=== PATIENT | female | born 1990 | race Caucasian/White ===

== ENCOUNTER 2019-05-01 11:01 | Emergency (ER) | payer OTHER, SELFPAY ==
[2019-05-01 11:10] VITALS: BP 128/68; PULSE 98; RESP 18; TEMP 36.9; O2SAT 100
--- NOTE | 2019-05-01 11:18 | ED.GENADULT ---
HPI - General Adult General Chief complaint: Urogenital-Female Stated complaint: Poss UTI Time Seen by Provider: 05/01/19 11:35 Source: patient and RN notes reviewed Mode of arrival: ambulatory Limitations: no limitations History of Present Illness HPI narrative: This is a 28 years old female presents to the office for an evaluation of possible UTI. Symptom began 4 days ago with urinary urgency, frequency, and suprapubic pain. Symptom has improved with Azo and worse again yesterday.She did not take any Azo today.Admits to history of recurrent UTI And symptoms reminiscent her previous UTI. Related Data Home Medications Medication Instructions Recorded Confirmed cariprazine [Vraylar] 3 mg PO DAILY 05/01/19 05/01/19 estradiol 1 patch TRANSDERMAL WEEKLY 05/01/19 05/01/19 fenofibrate 54 mg PO DAILY 05/01/19 05/01/19 levetiracetam [Keppra] 1,000 mg PO BID 05/01/19 05/01/19 meloxicam 15 mg PO DAILY 05/01/19 05/01/19 mirtazapine [Remeron] 15 mg PO DAILY 05/01/19 05/01/19 omeprazole 40 mg PO DAILY 05/01/19 05/01/19 ropinirole 0.25 mg PO DAILY 05/01/19 05/01/19 topiramate 100 mg PO BID 05/01/19 05/01/19 trazodone 150 mg PO HS 05/01/19 05/01/19 Allergies Allergy/AdvReac Type Severity Reaction Status Date / Time carbamazepine [From Tegretol] Allergy Hives Verified 05/01/19 11:18 latex Allergy Anaphylaxis Verified 05/01/19 11:18 morphine Allergy Dyspnea / Verified 05/01/19 11:18 SOB Review of Systems Review of Systems: Narrative: CONSTITUTIONAL: Denies fever or feeling ill ENT: Denies congestion CARDIOVASCULAR: Denies chest pain RESPIRATORY: Denies cough GASTROINTESTINAL: Denies abdominal pain, nausea, vomiting, diarrhea. GENITOURINARY: Denies abnormal discharge SKIN: Denies rash MUSCULOSKELETAL:Reports lower back pain NEUROLOGIC: Denies lightheaded PMFSH Past Medical History Medical History (Updated 05/01/19 @ 11:50 by ISABEL Edmondson) Anxiety and depression Bipolar affect, depressed History of alcohol abuse Hx of drug abuse Seizure TBI SVT (supraventricular tachycardia) Surgical History Surgical History (Updated 05/01/19 @ 11:48 by ISABEL Edmondson) Hx of hysterectomy secondary to endometriosis Hx of tonsillectomy Social History Social History (Updated 05/01/19 @ 11:50 by ISABEL Edmondson) Smoking status: Former smoker Tobacco type: e-cigarettes Comments At time of signature, I agree with nursing past medical, surgical, social and family history. There is no relevant family history pertinent to the presenting complaint. Exam Narrative: Exam Narrative: GENERAL: This is a well-nourished, well-developed patient, in no apparent distress. CARDIOVASCULAR: Regular rate and rhythm without murmurs, gallops, or rubs. RESPIRATORY: Clear to auscultation. Breath sounds equal bilaterally. No wheezes, rales, or rhonchi. GASTROINTESTINAL: Abdomen soft, non-tender, nondistended. Bowel sounds are active. No hepato-splenomegaly, or palpable masses. No guarding. left CVA tenderness. SKIN: warm, intact with no suspicious lesions or rash, good texture and turgor. NEURO: awake, alert, and oriented to person, place and time. There were no obvious focal neurologic abnormalities. Steady gait Reymundo Coma Scale Eye Opening: Spontaneous 4 Reymundo Coma Scale Motor: Obeys Commands 6 Reymundo Coma Scale Verbal: Oriented 5 Course Vital Signs Vital signs: Vital Signs Temperature 98.4 F 05/01/19 11:10 Pulse Rate 98 05/01/19 11:10 Respiratory Rate 18 05/01/19 11:10 Blood Pressure 128/68 05/01/19 11:10 Pulse Oximetry 100 05/01/19 11:10 Temperature 98.4 F 05/01/19 11:10 Pulse Rate 98 05/01/19 11:10 Respiratory Rate 18 05/01/19 11:10 Blood Pressure 128/68 05/01/19 11:10 Pulse Oximetry 100 05/01/19 11:10 Medical Decision Making MDM Narrative Medical decision making narrative: Discharge instructions reviewed with patient, as well as provided in writing pe
== END 2019-05-01 11:46 | disposition home or self-care (01) ==
PROVIDERS: Emergency Provider Nurse Practitioner; PCP Physician Assistant
DX: N30.01 Acute cystitis with hematuria (principal); Z87.891 Personal history of nicotine dependence; F41.9 Anxiety disorder, unspecified; F32.9 Major depressive disorder, single episode, unspecified; G40.909 Epilepsy, unspecified, not intractable, without status epilepticus
CPT/HCPCS: 81003; 87077; 87086; 87088; 99213; G0463

== ENCOUNTER 2019-11-23 11:06 | Outpatient (CLI) | payer OTHER, SELFPAY ==
[2019-11-23 11:26] LABS: Basophils Absolute Auto 0.1 K/mm3 (0.0-0.1); Basophils Percent Auto 0.7 % (0.2-1.2); Eosinophils Absolute Auto 0.1 K/mm3 (0-0.3); Eosinophils Percent Auto 1.6 % (0-4.4); Hematocrit 34.7 % (37.0-47.0); Hemoglobin 11.5 g/dL (12.0-15.0); Immature Granulocyte Absolute 0.01 K/mm3 (0.00-0.031); Immature Granulocyte Percent A 0.1 % (0-0.5); Lymphocytes Absolute Auto 2.82 K/mm3 (0.9-3.2); Mean Corpuscular HGB Conc 33.1 g/dl (32-36); Mean Corpuscular Hemoglobin 29.7 pg (26-34); Mean Corpuscular Volume 89.7 fl (80-100); Mean Platelet Volume 9.3 fl (7.4-10.4); Monocytes Absolute Auto 0.5 K/mm3 (0.1-0.6); Monocytes Percent Auto 6.9 % (2.6-8.5); Neutrophils Absolute Auto 3.3 K/mm3 (1.3-6.7); Neutrophils Percent Auto 48.7 % (45.5-73.1); Platelet Count Result 371 k/mm3 (150-375); Red Blood Count 3.87 M/mm3 (4.2-5.4); Red Cell Distribution Width 13.5 % (11.5-14.5); White Blood Count 6.7 K/mm3 (4.5-10.0)
[2019-11-23 12:10] LABS: Alanine Aminotransferase 18 U/L (4-35); Albumin Level 4.3 g/dL (3.5-5.1); Alkaline Phosphatase 70 U/L (38-126); Anion Gap 12 mmol/L (8-16); Aspartate Amino Transferase 20 U/L (14-36); Bilirubin,Total 0.1 mg/dL (0.2-1.3); Blood Urea Nitrogen 14 mg/dL (7-17); Calcium 9.4 mg/dL (8.4-10.2); Carbon Dioxide 21 mmol/L (22-30); Chloride 108 mmol/L (98-107); Estimated Glomerular Filt Rate > 60; Glucose 104 mg/dL (65-105); Lactate Dehydrogenase 363 U/L (313-618); Potassium 4.3 mmol/L (3.4-5.0); Sodium 141 mmol/L (137-145)
[2019-11-23 12:17] LABS: Iron 40 ug/dL (37-170)
[2019-11-23 12:26] LABS: Percent Iron Saturation 10 % (20-50)
[2019-11-23 13:16] LABS: Folic Acid 10.7 ng/mL (2.76->20)
[2019-11-28 15:58] LABS: Soluble Transferrin Receptor 1.45 mg/L (0.76-1.76)
== END 2019-11-23 11:07 | disposition home or self-care (01) ==
LOC: ANHLAB 11:10
PROVIDERS: PCP Physician Assistant; Visit Provider Internal Medicine Hematology & Oncology
DX: D64.9 Anemia, unspecified (principal)
CPT/HCPCS: 36415; 80053; 82607; 82728; 82746; 83540; 83550; 83615; 84238; 84443; 85025

== ENCOUNTER 2020-01-17 12:49 | Inpatient (IN) | payer OTHER, SELFPAY ==
--- NOTE | ~2020-01-17 | CT_ITS ---
EXAMINATION: CT brain wo con DATE: 01/17/2020 13:24 INDICATION: Altered mental status. Traumatic brain injury. TECHNIQUE: Computed tomography (CT) of the head was performed without intravenous contrast. The mA wa s adjusted according to patient size. Iterative reconstruction technique was employed. The dose-lengt h product was 605.33 mGy-cm. COMPARISON: None FINDINGS: There is no intracranial hemorrhage, acute infarction, or abnormal intracranial mass lesion . The ventricles are normal in size. The orbits are normal. There is mild mucosal thickening in sphen oid sinus. The mastoid air cells are normal. IMPRESSION: 1. Normal brain. Reviewed, dictated and finalized at location [facility] IMPRESSION: 1. Normal brain.
--- NOTE | 2020-01-17 12:52 | ECG_ITS ---
Measurements Intervals [place] Rate: 71 P: -3 MD: 163 QRS: 42 QRSD: 101 T: 9 QT: 399 QTc: 434 Interpretive Statements SINUS RHYTHM BORDERLINE T WAVE ABNORMALITY- INFERIOR LEADS BASELINE ARTIFACT- I, II, AVR, AVL, AVF, V3-V6 BORDERLINE ECG Electronically Signed On 01-17-2020 13:29:54 DEDICATED DRIVER by Robert Pérez D.O.
[2020-01-17 13:00] VITALS: BP 147/80; PULSE 80; RESP 22; TEMP 36.7; O2SAT 99
--- NOTE | 2020-01-17 13:05 | ED.GENADULT ---
HPI - General Adult General Chief complaint: Altered Mental Status Stated complaint: I THINK SHE WILL DO THAT FALL AND SHAKE THING Time Seen by Provider: 01/17/20 12:54 Source: patient and family History of Present Illness HPI narrative: Patient is a 29 y/o female complaining of diffuse headache since yesterday. She states that her headache is bilateral frontal. She describes her headache as a pressure and rates it as 8/10. There is no alleviating or exacerbating factor. She also has nausea, vomiting and neck pain and stiffness. starts that she was not acting right around 10:00 AM. She has history of seizure. She also states that she has history possible intracranial hypertension. Related Data Home Medications Medication Instructions Recorded Confirmed cariprazine [Vraylar] 3 mg PO DAILY 05/01/19 05/01/19 estradiol 1 patch TRANSDERMAL WEEKLY 05/01/19 05/01/19 fenofibrate 54 mg PO DAILY 05/01/19 05/01/19 meloxicam 15 mg PO DAILY 05/01/19 05/01/19 ropinirole 0.25 mg PO DAILY 05/01/19 05/01/19 topiramate 100 mg PO BID 05/01/19 05/01/19 trazodone 150 mg PO HS 05/01/19 05/01/19 duloxetine [Cymbalta] 60 mg PO DAILY 01/17/20 ropinirole [Requip] 1 mg PO BID 01/17/20 Allergies Allergy/AdvReac Type Severity Reaction Status Date / Time carbamazepine [From Tegretol] Allergy Hives Verified 01/17/20 13:00 latex Allergy Anaphylaxis Verified 01/17/20 13:00 morphine Allergy Dyspnea / Verified 01/17/20 13:00 SOB Review of Systems Constitutional: Constitutional: Denies chills, Denies fever(s), Reports headache(s) and Denies weakness Eyes: Eyes: Denies blurry vision ENT: Reports headache(s) and Reports neck pain Cardiovascular: Cardiovascular: Denies chest pain and Denies dyspnea Respiratory: Respiratory: Denies cough and Denies dyspnea Gastrointestinal: Gastrointestinal: Denies abdominal pain, Denies diarrhea, Reports nausea and Reports vomiting Genitourinary: Genitourinary: Denies hematuria and Denies dysuria Musculoskeletal: Musculoskeletal: Denies back pain and Denies neck pain Neurologic: Reports headache(s) and Denies weakness [facility] Past Medical History Medical History Anxiety and depression Bipolar affect, depressed History of alcohol abuse Hx of drug abuse Seizure TBI SVT (supraventricular tachycardia) Surgical History Surgical History Hx of hysterectomy secondary to endometriosis Hx of tonsillectomy Social History Social History Smoking status: Current every day smoker Tobacco type: e-cigarettes/vaping Alcohol intake: former Substance use: former Gender identity (if verbalized by the patient): Female Sexual Orientation (if Verbalized by the Patient): Straight or Heterosexual Spiritual care concerns: No Exam Const: General: no acute distress and well developed Orientation/consciousness: oriented to person, oriented to place and confusion HENMT: Head: normocephalic Ears: external ears normal General nose exam: Normal external nose present Eyes: General: appearance normal, both eyes and all related structures Conjunctivae: conjunctivae normal Neck: Neck: normal visual inspection and full ROM Chest: Chest palpation & inspection: normal inspection of the chest and no tenderness Resp: Effort & Inspection: normal respiratory effort Auscultation: clear to auscultation bilaterally Cardio: Rate: regular rate Rhythm: regular rhythm GI: GI Palp: No abdominal tenderness and Yes Soft to palpation Skin: General skin exam: normal color and turgor normal Neuro: General: oriented to person, oriented to place, oriented to time and patient oriented x3 Cranial nerves: Yes CN's II-XII intact bilaterally Cognition (Neuro): normal cognition Speech: normal speech Motor exam (neuro): 5/5 motor strength present throughout Sen
[2020-01-17 13:21] LABS: Basophils Percent Auto 0.5 % (0.2-1.2); Eosinophils Absolute Auto 0.1 K/mm3 (0-0.3); Eosinophils Percent Auto 0.8 % (0-4.4); Hematocrit 36.9 % (37.0-47.0); Hemoglobin 12.3 g/dL (12.0-15.0); Immature Granulocyte Absolute 0.02 K/mm3 (0.00-0.031); Immature Granulocyte Percent A 0.3 % (0-0.5); Lymphocytes Absolute Auto 3.14 K/mm3 (0.9-3.2); Lymphocytes Percent Auto 39.9 % (18.3-44.2); Mean Corpuscular HGB Conc 33.3 g/dl (32-36); Mean Corpuscular Hemoglobin 29.9 pg (26-34); Mean Corpuscular Volume 89.6 fl (80-100); Mean Platelet Volume 9.2 fl (7.4-10.4); Monocytes Absolute Auto 0.5 K/mm3 (0.1-0.6); Monocytes Percent Auto 5.7 % (2.6-8.5); Neutrophils Absolute Auto 4.2 K/mm3 (1.3-6.7); Neutrophils Percent Auto 52.8 % (45.5-73.1); Platelet Count Result 361 k/mm3 (150-375); Red Blood Count 4.12 M/mm3 (4.2-5.4); Red Cell Distribution Width 13.3 % (11.5-14.5); White Blood Count 7.9 K/mm3 (4.5-10.0)
[2020-01-17 13:33] LABS: Alanine Aminotransferase 22 U/L (4-35); Albumin Level 4.6 g/dL (3.5-5.1); Alkaline Phosphatase 75 U/L (38-126); Anion Gap 13 mmol/L (8-16); Aspartate Amino Transferase 24 U/L (14-36); Bilirubin,Total 0.2 mg/dL (0.2-1.3); Blood Urea Nitrogen 14 mg/dL (7-17); Calcium 9.2 mg/dL (8.4-10.2); Carbon Dioxide 18 mmol/L (22-30); Chloride 110 mmol/L (98-107); Estimated CRCL calculation 98 ml/min; Estimated Glomerular Filt Rate > 60; Glucose 103 mg/dL (65-105); Potassium 3.8 mmol/L (3.4-5.0); Sodium 141 mmol/L (137-145)
[2020-01-17 14:29] LABS: Add Urine Microscopic? YES; Amorphous Sediment Urine Moderate; Appearance Urine Cloudy (Clear); Bacteria Urine Trace /hpf; Bilirubin Urine Negative (Negative); Blood Urine Negative (Negative); Color Urine Yellow (Yellow); Glucose Urine UA Negative (Negative); Ketones Urine Negative (Negative); Leukocyte Esterase Ur Negative LEU/UL (Negative); Mucus Urine Few /lpf; Nitrate Urine Negative (Negative); Protein Urine Negative (Negative); Squamous Epithelial Cell Urine Many /hpf (Few); Urobilinogen Urine Negative mg/dL (<2.0)
[2020-01-17] MEDS: SODIUM CHLORIDE 0.9% IV 1,000 ML 999 ML IV CONT (14:29)
[2020-01-17 14:35] LABS: Barbiturate Screen Urine Negative (Negative); Benzodiazepines Screen Urine Negative (Negative)
[2020-01-17] MEDS: ONDANSETRON INJ 4 MG/2 ML VIAL IV PUSH ×2 (14:39→21:23)
[2020-01-17 14:40] LABS: Amphetamine Screen Urine Negative (Negative); Cannabinoid Screen Urine Negative (Negative); Cocaine Screen Urine Negative (Negative); Methadone Screen Urine Negative (Negative)
[2020-01-17] MEDS: diphenhydrAMINE HCl INJ 50 MG/ML VIAL 25 MG IV PUSH (14:56)
[2020-01-17] MEDS: KETOROLAC 30 MG/ML VIAL (*BKC) IV PUSH (14:56)
[2020-01-17 14:57] LABS: Opiate Screen Urine Negative (Negative); Phencyclidine Screen Urine Negative (Negative)
[2020-01-17 16:36] LABS: Glucose CSF 56 mg/dL (40-70); Total Protein CSF 61 mg/dL (12-60)
[2020-01-17 16:46] LABS: Appearance CSF Clear (Clear); CSF source CSF; Color CSF Colorless (Colorless)
[2020-01-17 16:47] LABS: Lymphocytes CSF 90 % (40-80); Monocytes CSF 10 % (15-45); Neutrophils CSF 0 % (0-6); Nucleated Cell CSF 11 /uL (0-5); Red Blood Cell CSF 8 (0-2)
[2020-01-17] MEDS: ACYCLOVIR SODIUM IVPB 1,000 MG in DEXTROSE 5% IN WATER 250 ML 266 MG IVPB (17:56)
--- NOTE | 2020-01-17 18:00 | PM.IMHP ---
H&P: HPI History of Present Illness Date/Time: 01/17/20 18:00 Chief complaint: Headache, confusion. Narrative: Sarah Menon is a 29-year-old female with history of traumatic brain injury and subsequent seizures and underlying psychiatric illnesses who presented to the emergency department earlier today via private vehicle with complaints of headache and confusion. She has a history of alcohol and prescription drug abuse and has been clean since February 2018. In fact she has been living at a sober house since 2018 however she was kicked out of that home on Friday night after she missed curfew. She has been staying with friends and last night she stated a local motel and was there were she started to become confused and she apparently called a friend who was concerned about her. That friend came to visit her today and she seemed to be doing better however while they were out shopping she apparently once again became confused, got of the car, and was wandering around. On arrival to the emergency department she reported a bifrontal headache that has been present for almost 1 week in addition to nausea and vomiting for which she has been taking Compazine and ibuprofen. She also mentions significant fatigue, sleeping about 8 hours a day and napping 2 to 3 hours a day. She does not believe she had a seizure within the last 24 hours but notes increasing numbers of seizures over the last month despite being compliant with her home medication. Lumbar puncture was performed in the emergency department with findings of possible aseptic meningitis and she is being admitted in this setting. The biggest complaint she has at this time is of pain at the side of her lumbar puncture. She has had exposure to COVID-19 but has tested negative x2 over the last couple of weeks. She denies fever, chills, and sweats. No sinus congestion, rhinorrhea, otalgia, or odynophagia. She has a mild nonproductive cough. No diarrhea or dysuria. Review of Systems Review of Systems: Narrative: Twelve systems were reviewed with pertinent positives and negatives as per HPI. She has been having problems with chest pain and shortness of breath for over a month and is being followed by Dr. Chapman with [facility] in [place]. She has had an echocardiogram and has worn a Holter monitor which were both reportedly unremarkable. She is due for a stress test and pulmonary function testing later this week and is supposed to have a sleep apnea screening test done as well. She believes her psychiatric illnesses are well controlled on her home medications. Denies suicidal and homicidal ideations. Except as documented, all other systems were reviewed and are negative. [facility] Past Medical History Medical History (Updated 01/17/20 @ 21:00 by Makenna Kellogg PA-C) Anxiety and depression Bipolar disorder Borderline personality disorder Nicotine dependence Polysubstance abuse History of alcohol and prescription drug abuse, clean since February 2018. 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 Supraventricular tachycardia Status post cardiac ablation. Traumatic brain injury (~2010) Surgical History Surgical History (Updated 01/17/20 @ 20:53 by Makenna Kellogg PA-C) History of 3 sections History of appendectomy History of bilateral carpal tunnel release History of cardiac radiofrequency ablation For supraventricular tachycardia. History of elbow surgery ORIF left elbow fracture. History of sinus surgery History of tonsillectomy History of total abdominal hysterectomy and bilateral salpingo-oophorectomy For endometriosis. Family History Family History (Updated 01/17/20 @ 20:53 by Makenna Kellogg PA-C) Other Depression Diabetes mellitus Heart disease Hypertension Social History Social History (Updated 01/17/20 @ 20:54 by Makenna Kellogg PA-C) Social History: Surrogate decision maker: Rolando
--- NOTE | 2020-01-17 18:03 | PC.NURSE ---
[id number] report on pt received from ED
--- NOTE | 2020-01-17 18:32 | ADMGEN ---
This patient, Sarah Menon, was admitted to 2 Medical Room 249-01. Patient/family oriented to hospital policies and general routines including ID bracelet, bed and alarms, visiting hours, pain management, procedures, bathroom and other care routines, personal items, smoking policy, room service/diet, and visiting hours. Information on how to activate the Rapid Response Team has been discussed. Patient/Family are encouraged to report perceived risks to care and to ask questions if they do not understand what they are told or what they should do.
[2020-01-17 18:57] VITALS: BP 130/69; PULSE 65; RESP 17; TEMP 37; O2SAT 100; BMI 34.6
[2020-01-17 20:00] VITALS: BP 123/59; PULSE 90; RESP 16; TEMP 36.3; O2SAT 99
[2020-01-17] MEDS: ACETAMINOPHEN 325 MG TABLET 650 MG PO (21:23)
[2020-01-17] MEDS: LACOSAMIDE (*CRX) 100 MG TABLET PO (21:59)
[2020-01-17] MEDS: traZODone HCL 50 MG TABLET 150 MG PO (21:59)
[2020-01-17] MEDS: rOPINIRole HCL 0.25 MG TABLET PO (22:00)
[2020-01-17] MEDS: NICOTINE (*PBKC) 14 MG PATCH 1 PATCH TRANSDERM (22:00)
[2020-01-17] MEDS: TOPIRAMATE 100 MG TABLET PO (22:00)
--- NOTE | 2020-01-17 22:16 | PCDIET ---
patient states she will have significant other bring in vraylar and fenofibrate from home
[2020-01-18] VITALS (8 sets, daily range): BP systolic 110–126; BP diastolic 50–81; PULSE 73–117; RESP 16–20; TEMP 36.1–36.9; O2SAT 95–100
[2020-01-18] MEDS: ACYCLOVIR SODIUM IVPB 1,000 MG in DEXTROSE 5% IN WATER 250 ML 266 MG IVPB (01:50)
[2020-01-18] MEDS: ONDANSETRON INJ 4 MG/2 ML VIAL IV PUSH ×2 (03:17→11:09)
[2020-01-18] MEDS: ACETAMINOPHEN 325 MG TABLET 650 MG PO ×2 (03:17→21:22)
[2020-01-18 08:45] LABS: Basophils Percent Auto 0.5 % (0.2-1.2); Eosinophils Absolute Auto 0.1 K/mm3 (0-0.3); Eosinophils Percent Auto 0.9 % (0-4.4); Hematocrit 34.9 % (37.0-47.0); Hemoglobin 11.9 g/dL (12.0-15.0); Immature Granulocyte Absolute 0.02 K/mm3 (0.00-0.031); Immature Granulocyte Percent A 0.3 % (0-0.5); Lymphocytes Absolute Auto 2.69 K/mm3 (0.9-3.2); Lymphocytes Percent Auto 36.3 % (18.3-44.2); Mean Corpuscular HGB Conc 34.1 g/dl (32-36); Mean Corpuscular Hemoglobin 30.2 pg (26-34); Mean Corpuscular Volume 88.6 fl (80-100); Mean Platelet Volume 9.1 fl (7.4-10.4); Monocytes Absolute Auto 0.5 K/mm3 (0.1-0.6); Monocytes Percent Auto 6.2 % (2.6-8.5); Neutrophils Absolute Auto 4.1 K/mm3 (1.3-6.7); Neutrophils Percent Auto 55.8 % (45.5-73.1); Platelet Count Result 337 k/mm3 (150-375); Red Blood Count 3.94 M/mm3 (4.2-5.4); Red Cell Distribution Width 13.2 % (11.5-14.5); White Blood Count 7.4 K/mm3 (4.5-10.0)
[2020-01-18 08:56] LABS: Alanine Aminotransferase 20 U/L (4-35); Alkaline Phosphatase 56 U/L (38-126); Anion Gap 10 mmol/L (8-16); Aspartate Amino Transferase 24 U/L (14-36); Bilirubin,Total 0.3 mg/dL (0.2-1.3); Blood Urea Nitrogen 10 mg/dL (7-17); Calcium 8.7 mg/dL (8.4-10.2); Carbon Dioxide 20 mmol/L (22-30); Chloride 111 mmol/L (98-107); Estimated CRCL calculation 91 ml/min; Estimated Glomerular Filt Rate > 60; Glucose 99 mg/dL (65-105); Magnesium 2.1 mg/dL (1.6-2.3); Potassium 3.8 mmol/L (3.4-5.0); Sodium 141 mmol/L (137-145)
[2020-01-18] MEDS: PANTOPRAZOLE 40 MG TABLET PO ×2 (09:10→21:17)
[2020-01-18] MEDS: LORATADINE 10 MG TABLET PO (09:10)
[2020-01-18] MEDS: DULoxetine HCL 60 MG CAPSULE.DR PO (09:10)
[2020-01-18] MEDS: TOPIRAMATE 100 MG TABLET PO ×2 (09:11→21:17)
[2020-01-18] MEDS: FERROUS SULFATE 324 MG TABLET PO (09:11)
[2020-01-18] MEDS: ESTRADIOL 7 DAY 0.1 MG PATCH TRANSDERM (09:11)
[2020-01-18] MEDS: NICOTINE (*PBKC) 14 MG PATCH 1 PATCH TRANSDERM (09:12)
[2020-01-18] MEDS: LACOSAMIDE (*CRX) 100 MG TABLET PO ×2 (09:21→21:17)
--- NOTE | 2020-01-18 10:22 | WPDNEURCNPN ---
Assessment and Plan Assessment and plan (1) Confusion: Code(s): R41.0 - Disorientation, unspecified Status: Acute (2) Seizure: Code(s): R56.9 - Unspecified convulsions Status: Acute (3) Abnormal finding in CSF: Code(s): R83.9 - Unspecified abnormal finding in cerebrospinal fluid Status: Acute (4) Headache: Qualifiers: Headache chronicity pattern: unspecified pattern Headache type: unspecified Intractability: not intractable Qualified Code(s): R51.9 - Headache, unspecified Code(s): R51.9 - Headache, unspecified Status: Acute (5) Meningitis: Code(s): G03.9 - Meningitis, unspecified Status: Acute Additional Plan headaches with post spinal status already on antiviral medications culture will be awaited and we also will obtain the EEG though at present she is covered with the anticonvulsants Consult date: 01/18/20 Time Seen: 10:15 HPI: Sarah Menon is a 29 year old female admitted to the [facility] with history of traumatic brain injury and posttraumatic seizure disorder in addition to the ongoing history of psychiatric illnesses. She was brought to the ER by the private vehicle with the complaints of headaches with confusion she obviously has a history of alcohol and prescription drug abuse though has been clean since February of 2018 she was kicked out of the home on Friday night after she missed occurred few. She was staying with friends in the local motlel where she became confused and developed headache. In the Emergency Room spinal tap was done and she was admitted to the hospital for further care. CBC revealed WBC 7.4 hemoglobin 11.9 platelet count 337 basic metabolic panel fairly normal urine cloudy CSF with 8 RBCs 11 nucleated cells 90% lymphocytes CSF protein 61 with glucose 56, patient receiving acyclovir 1000 mg IV piggyback q.8 hours and has been continued on her medications which includes lacosamide 100 mg q.12 hours as well in addition to topiramate 100 mg q.12 hours. Review of Systems Review of Systems: All systems reviewed & are unremarkable except as noted in HPI and below PMFSH Past Medical History Medical History Anxiety and depression Bipolar disorder Borderline personality disorder Nicotine dependence Polysubstance abuse History of alcohol and prescription drug abuse, clean since February 2018. 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 Supraventricular tachycardia Status post cardiac ablation. Traumatic brain injury (~2010) Surgical History Surgical History History of 3 sections History of appendectomy History of bilateral carpal tunnel release History of cardiac radiofrequency ablation For supraventricular tachycardia. History of elbow surgery ORIF left elbow fracture. History of sinus surgery History of tonsillectomy History of total abdominal hysterectomy and bilateral salpingo-oophorectomy For endometriosis. Family History Family History Other Depression Diabetes mellitus Heart disease Hypertension Social History Social History Social History: Surrogate decision maker: Rolando Menon, father. Code status: Full code. Smoking status: Current every day smoker Tobacco type: e-cigarettes/vaping Additional smoking assessment comments: She smoked 1 to 2 cigarettes a day and vapes as well. Alcohol intake: former Alcohol use details: History of alcohol abuse, has abstained since February 2018. Substance use: former Other substance usage details: History prescription drug abuse, clean since February 2018. Additional living arrangements comments: Has been living at a sober house but was recently kicked out of same. Additional occupation/education
[2020-01-18] MEDS: ACYCLOVIR SODIUM IVPB 1,000 MG in DEXTROSE 5% IN WATER 250 ML 200 MG IVPB ×2 (11:09→18:28)
--- NOTE | 2020-01-18 13:40 | PM.IMPN ---
Progress Note: A&P Assessment and Plan (1) Headache: Qualifiers: Headache chronicity pattern: unspecified pattern Headache type: unspecified Intractability: not intractable Qualified Code(s): R51.9 - Headache, unspecified Code(s): R51.9 - Headache, unspecified Status: Acute Assessment and Plan: 01/18/20 13:40 Patient 29 year female with history of traumatic brain injury with history of seizure on anticonvulsants patient also has history psychiatric illness, alcohol and prescription drug abuse, she has been drug and alcohol free since February of 2018 had been living the [facility] and recently was asked to leave the home because she had violated curfew order and has been staying in the motel with friends. while in the hotel she became confused had c/o of severe frontal and orbital KIRK, photophobia CT scan of the head is normal, urine drug is negative for any illicit drugs, ER suspected possible meningitis and patient had LP and suspect patient may have viral meningitis patient is started on acyclovir, and viral culture is sent. Patient was seen by Neurologist and agrees with the plan so far and to further evaluate EEG is ordered, patient's complaints headache for which patient normally takes vistaril, will continue. Patient appears clinically stable will follow-up on EEG and further recommendation to follow (2) Abnormal finding in CSF: Code(s): R83.9 - Unspecified abnormal finding in cerebrospinal fluid Status: Acute Assessment and Plan: Suspect viral meningitis patient acyclovir will follow-up on viral culture (3) Seizure: Code(s): R56.9 - Unspecified convulsions Status: Acute Assessment and Plan: Patient on anticonvulsants (4) Suspected sleep apnea: Code(s): R29.818 - Other symptoms and signs involving the nervous system Status: Acute Assessment and Plan: Patient will will benefit from sleep study (5) Psychiatric illness: Code(s): F99 - Mental disorder, not otherwise specified Status: Acute Assessment and Plan: Will continue home regimen (6) Nicotine dependence: Code(s): F17.200 - Nicotine dependence, unspecified, uncomplicated Status: Acute Assessment and Plan: Nicotine patches (7) Confusion: Code(s): R41.0 - Disorientation, unspecified Status: Acute Assessment and Plan: Etiology uncertain will follow on EEG and viral culture further recommendation to follow Subjective Date/time seen: 01/18/20 13:40 Patient 29 year female with history of traumatic brain injury with history of seizure on anticonvulsants patient also has history psychiatric illness, alcohol and prescription drug abuse, she has been drug and alcohol free since February of 2018 had been living the [facility] and recently was asked to leave the home because she had violated curfew order and has been staying in the motel with friends. while in the hotel she became confused had c/o of severe frontal and orbital KIRK, photophobia CT scan of the head is normal, urine drug is negative for any illicit drugs, ER suspected possible meningitis and patient had LP and suspect patient may have viral meningitis patient is started on acyclovir, and viral culture is sent. Patient was seen by Neurologist and agrees with the plan so far and to further evaluate EEG is ordered, patient's complaints headache for which patient normally takes vistaril, will continue. Patient appears clinically stable will follow-up on EEG and further recommendation to follow Review of Systems Review of Systems: All systems reviewed & are unremarkable except as noted in HPI and below Objective Data Vital Signs Vital Signs: Vital Signs - 24 hr 01/17/20 18:57 01/17/20 20:00 01/18/20 00:00 Temperature 98.6 F 97.4 F L 97.1 F L Pulse Rate 65 90 73 Respiratory Rate 17 16 16 Blood Pressure 130/69 123/59 L 125/81 Pulse Oximetry 100 99 99 01/18/20 04:00
[2020-01-18] MEDS: hydrOXYzine pamoate 25 MG CAPSULE PO ×2 (16:09→21:24)
[2020-01-18] MEDS: rOPINIRole HCL 0.5 MG TABLET PO (18:28)
[2020-01-18] MEDS: PRAZOSIN HCL 1 MG CAPSULE 2 MG PO (18:28)
[2020-01-18] MEDS: rOPINIRole HCL 0.25 MG TABLET PO (21:17)
[2020-01-18] MEDS: traZODone HCL 50 MG TABLET 150 MG PO (21:17)
[2020-01-19] VITALS (11 sets, daily range): BP systolic 101–133; BP diastolic 53–82; PULSE 65–120; RESP 16–18; TEMP 36.4–37; O2SAT 92–99
[2020-01-19] MEDS: ACYCLOVIR SODIUM IVPB 1,000 MG in DEXTROSE 5% IN WATER 250 ML 200 MG IVPB ×3 (02:13→17:17)
[2020-01-19 07:16] LABS: Basophils Percent Auto 0.4 % (0.2-1.2); Eosinophils Absolute Auto 0.1 K/mm3 (0-0.3); Eosinophils Percent Auto 1.3 % (0-4.4); Hematocrit 34.6 % (37.0-47.0); Hemoglobin 11.6 g/dL (12.0-15.0); Immature Granulocyte Absolute 0.01 K/mm3 (0.00-0.031); Immature Granulocyte Percent A 0.1 % (0-0.5); Lymphocytes Absolute Auto 2.44 K/mm3 (0.9-3.2); Lymphocytes Percent Auto 36.4 % (18.3-44.2); Mean Corpuscular HGB Conc 33.5 g/dl (32-36); Mean Corpuscular Hemoglobin 29.6 pg (26-34); Mean Corpuscular Volume 88.3 fl (80-100); Mean Platelet Volume 9.1 fl (7.4-10.4); Monocytes Absolute Auto 0.5 K/mm3 (0.1-0.6); Monocytes Percent Auto 7.8 % (2.6-8.5); Neutrophils Absolute Auto 3.6 K/mm3 (1.3-6.7); Platelet Count Result 321 k/mm3 (150-375); Red Blood Count 3.92 M/mm3 (4.2-5.4); Red Cell Distribution Width 13.3 % (11.5-14.5); White Blood Count 6.7 K/mm3 (4.5-10.0)
[2020-01-19 07:25] LABS: Alanine Aminotransferase 19 U/L (4-35); Albumin Level 3.9 g/dL (3.5-5.1); Alkaline Phosphatase 60 U/L (38-126); Anion Gap 8 mmol/L (8-16); Aspartate Amino Transferase 23 U/L (14-36); Bilirubin,Total 0.4 mg/dL (0.2-1.3); Blood Urea Nitrogen 12 mg/dL (7-17); Calcium 8.9 mg/dL (8.4-10.2); Carbon Dioxide 23 mmol/L (22-30); Chloride 108 mmol/L (98-107); Estimated CRCL calculation 76 ml/min; Estimated Glomerular Filt Rate 52; Glucose 97 mg/dL (65-105); Potassium 3.8 mmol/L (3.4-5.0); Sodium 139 mmol/L (137-145)
[2020-01-19] MEDS: LORATADINE 10 MG TABLET PO (09:25)
[2020-01-19] MEDS: LACOSAMIDE (*CRX) 100 MG TABLET PO ×2 (09:25→21:15)
[2020-01-19] MEDS: FERROUS SULFATE 324 MG TABLET PO (09:25)
[2020-01-19] MEDS: DULoxetine HCL 60 MG CAPSULE.DR PO (09:25)
[2020-01-19] MEDS: NICOTINE (*PBKC) 14 MG PATCH 1 PATCH TRANSDERM (09:26)
[2020-01-19] MEDS: TOPIRAMATE 100 MG TABLET PO ×2 (09:26→21:15)
[2020-01-19] MEDS: PANTOPRAZOLE 40 MG TABLET PO ×2 (09:26→21:16)
--- NOTE | 2020-01-19 09:51 | PC.NURSE ---
patient did not want Kpad at this time.
--- NOTE | 2020-01-19 10:44 | WPDNEUROLOGY ---
Neurology EEG Report General Information Date of Study: 01/18/20 TEST EEG DIAGNOSIS seizures CONDITION OF RECORDING awake and drowsy EEG NUMBER [id number] CLINICAL HISTORY patient reported she came in to the ER with headaches neck pain and confusion EEG DESCRIPTION basic resting occipital frequency consists of large amount of well-organized low to medium voltage 8 to 10 hertz per 2nd alpha posteriorly admixed with minimal amount of low-voltage 15 to 18 hertz per 2nd beta. Low-voltage beta activity seen diffusely during drowsiness. Hyperventilation not done photic stimulation not done. Non paroxysmal. Nonfocal. Nonlateralizing. IMPRESSION Normal record
--- NOTE | 2020-01-19 12:30 | WPDNEUROPN ---
Objective Data Vital Signs Vital Signs: Vital Signs - 24 hr 01/18/20 14:00 01/18/20 16:00 01/18/20 18:00 Temperature 36.6 C 36.8 C Pulse Rate 117 H 113 H 99 Respiratory Rate 20 18 Blood Pressure 126/80 122/68 Pulse Oximetry 99 99 01/18/20 20:00 01/18/20 22:24 01/19/20 00:00 Temperature 36.2 C L Pulse Rate 102 H 96 Respiratory Rate 16 Blood Pressure 110/50 L Pulse Oximetry 95 95 01/19/20 02:08 01/19/20 04:00 01/19/20 08:00 Temperature 37.0 C 36.6 C Pulse Rate 65 83 88 Respiratory Rate 16 16 Blood Pressure 101/53 L 102/54 L Pulse Oximetry 92 98 01/19/20 09:56 01/19/20 12:00 Temperature 36.4 C Pulse Rate 106 H 93 Respiratory Rate 18 Blood Pressure 132/64 Pulse Oximetry 99 Intake/Output Intake/Output: Intake & Output 01/16/20 01/17/20 01/18/20 01/19/20 23:59 23:59 23:59 23:59 Intake Total 1270 3670 1010 Output Total 6000 500 Balance 1270 -2330 510 Meds/Results Medications: Active Medications Generic Name Dose Route Start Last Admin Trade Name Freq PRN Reason Stop Dose Admin Acetaminophen 650 mg 01/17/20 21:01 01/18/20 21:22 Acetaminophen 325 Mg Tablet PO 650 mg Q6H PRN Administration Mild Pain (1-3) or Fever Acetazolamide 125 mg 01/18/20 09:00 01/19/20 09:25 Acetazolamide Tab 125 Mg Tablet PO 125 mg BID RONNIE Administration Duloxetine HCl 60 mg 01/18/20 09:00 01/19/20 09:25 Duloxetine Hcl 60 Mg Capsule.Dr PO 60 mg DAILY RONNIE Administration Ergocalciferol 50,000 unit 01/23/20 09:00 Ergocalciferol 50,000 Unit Capsule PO WEEKLY RONNIE Estradiol 0.1 mg 01/18/20 09:00 01/18/20 09:11 Estradiol 7 Day 0.1 Mg Patch TRANSDERM 0.1 mg WEEKLY RONNIE Administration Ferrous Sulfate 324 mg 01/18/20 09:00 01/19/20 09:25 Ferrous Sulfate 324 Mg Tablet PO 324 mg DAILY RONNIE Administration Hydroxyzine Pamoate 25 mg 01/18/20 13:23 01/18/20 21:24 Hydroxyzine Pamoate 25 Mg Capsule PO 25 mg Q4H PRN Administration Irritation Acyclovir Sodium 1,000 mg/ 270 mls @ 266 mls/hr 01/18/20 02:00 01/19/20 09:26 Dextrose IVPB 200 mls/hr Q8H RONNIE Administration Lacosamide 100 mg 01/17/20 21:10 01/19/20 09:25 Lacosamide (*Crx) 100 Mg Tablet PO 100 mg Q12HR RONNIE Administration Loratadine 10 mg 01/18/20 09:00 01/19/20 09:25 Loratadine 10 Mg Tablet PO 10 mg DAILY RONNIE Administration Nicotine 1 patch 01/17/20 21:05 01/19/20 09:26 Nicotine (*Pbkc) 14 Mg Patch TRANSDERM 1 patch QAM RONNIE Administration Non-Formulary Medication 3 mg 01/18/20 09:00 Cariprazine [Vraylar] PO 02/17/20 09:01 DAILY RONNIE Non-Formulary Medication 54 mg 01/18/20 09:00 Fenofibrate PO 02/17/20 09:01 DAILY RONNIE Ondansetron HCl 4 mg 01/17/20 21:01 01/18/20 11:09 Ondansetron Inj 4 Mg/2 Ml Vial IV PUSH 4 mg Q6H PRN Administration Nausea And Vomiting Pantoprazole Sodium 40 mg 01/18/20 09:00 01/19/20 09:26 Pantoprazole 40 Mg Tablet PO 40 mg Q12HR RONNIE Administration Prazosin HCl 2 mg 01/18/20 18:00 01/18/20 18:28 Prazosin Hcl 1 Mg Capsule PO 2 mg QPM RONNIE Administration Ropinirole HCl 0.25 mg 01/17/20 21:00 01/18/20 21:17 Ropinirole Hcl 0.25 Mg Tablet PO 0.25 mg HS RONNIE Administration Ropinirole HCl 0.5 mg 01/18/20 17:00 01/18/20 18:28 Ropinirole Hcl 0.5 Mg Tablet PO 0.5 mg DAILY@1700 RONNIE Administration Topiramate 100 mg 01/17/20 22:00 01/19/20 09:26 Topiramate 100 Mg Tablet PO 100 mg Q12HR RONNIE Administration Trazodone HCl 150 mg 01/17/20 21:00 01/18/20 21:17 Trazodone Hcl 50 Mg Tablet PO 150 mg HS RONNIE Administration Radiology Results: ITS Impressions Head CT 01/17/20 13:28 IMPRESSION: 1. Normal brain. Labs Labs: Laboratory Results - last 24 hr 01/19/20 01/19/20 07:04 07:04 WBC 6.7 RBC 3.92 L Hgb 11.6 L Hct 34.6 L MCV 88.3 MCH 29.6 MCHC 33.5 RDW 13.3 Plt Count
--- NOTE | 2020-01-19 15:23 | ECG_ITS ---
Measurements Intervals [place] Rate: 107 P: 56 MD: 152 QRS: 61 QRSD: 98 T: 29 QT: 336 QTc: 448 Interpretive Statements SINUS TACHYCARDIA MINIMAL Q WAVES- INFERIOR LEADS ABNORMAL ECG Electronically Signed On 01-19-2020 15:56:02 BACKHOE OPERATOR by Robert Pérez D.O.
--- NOTE | 2020-01-19 15:24 | PM.IMPN ---
Progress Note: A&P Assessment and Plan (1) Headache: Qualifiers: Headache chronicity pattern: unspecified pattern Headache type: unspecified Intractability: not intractable Qualified Code(s): R51.9 - Headache, unspecified Code(s): R51.9 - Headache, unspecified Status: Acute Assessment and Plan: 01/19/20 15:24 Patient 29 year female with history of traumatic brain injury with history of seizure on anticonvulsants patient also has history psychiatric illness, alcohol and prescription drug abuse, she has been drug and alcohol free since February of 2018 had been living the intermediate and recently was asked to leave the home because she had violated curfew order and has been staying in the motel with friends. while in the hotel she became confused had c/o of severe frontal and orbital KIRK, photophobia CT scan of the head is normal, urine drug is negative for any illicit drugs, ER suspected possible meningitis and patient had LP and suspect patient may have viral meningitis patient was started on acyclovir, and viral culture is sent and pending. Patient was seen by Neurologist and agrees with the plan so far and to further evaluate patient had a EEG which normal, patient's complaints headache for which patient normally takes vistaril, will continue. Patient c/o feeling dizzy and palpitation which chronic for the patient is seen by a carton liner at [facility] and work up is in progress, Patient appears clinically stable will follow-up on viral culture will continue acyclovir and further recommendation to follow (2) Abnormal finding in CSF: Code(s): R83.9 - Unspecified abnormal finding in cerebrospinal fluid Status: Acute Assessment and Plan: Suspect viral meningitis patient acyclovir will follow-up on viral culture (3) Seizure: Code(s): R56.9 - Unspecified convulsions Status: Acute Assessment and Plan: Patient on anticonvulsants (4) Suspected sleep apnea: Code(s): R29.818 - Other symptoms and signs involving the nervous system Status: Acute Assessment and Plan: Patient will will benefit from sleep study (5) Psychiatric illness: Code(s): F99 - Mental disorder, not otherwise specified Status: Acute Assessment and Plan: Will continue home regimen (6) Nicotine dependence: Code(s): F17.200 - Nicotine dependence, unspecified, uncomplicated Status: Acute Assessment and Plan: Nicotine patches (7) Confusion: Code(s): R41.0 - Disorientation, unspecified Status: Acute Assessment and Plan: Etiology uncertain will follow on EEG and viral culture further recommendation to follow Subjective Date/time seen: 01/19/20 15:24 Patient 29 year female with history of traumatic brain injury with history of seizure on anticonvulsants patient also has history psychiatric illness, alcohol and prescription drug abuse, she has been drug and alcohol free since February of 2018 had been living the intermediate and recently was asked to leave the home because she had violated curfew order and has been staying in the motel with friends. while in the hotel she became confused had c/o of severe frontal and orbital KIRK, photophobia CT scan of the head is normal, urine drug is negative for any illicit drugs, ER suspected possible meningitis and patient had LP and suspect patient may have viral meningitis patient was started on acyclovir, and viral culture is sent and pending. Patient was seen by Neurologist and agrees with the plan so far and to further evaluate patient had a EEG which normal, patient's complaints headache for which patient normally takes vistaril, will continue. Patient c/o feeling dizzy and palpitation which chronic for the patient is seen by a carton liner at [facility] and work up is in progress, Patient appears clinically stable will follow-up on viral culture will continue acyclovir and furt
[2020-01-19] MEDS: KETOROLAC 15 MG/ML VIAL (*BKC) IV PUSH (17:18)
[2020-01-19] MEDS: rOPINIRole HCL 0.5 MG TABLET PO (17:19)
[2020-01-19] MEDS: PRAZOSIN HCL 1 MG CAPSULE 2 MG PO (17:19)
[2020-01-19] MEDS: ACETAMINOPHEN 325 MG TABLET 650 MG PO (21:15)
[2020-01-19] MEDS: rOPINIRole HCL 0.25 MG TABLET PO (21:15)
[2020-01-19] MEDS: traZODone HCL 50 MG TABLET 150 MG PO (21:15)
[2020-01-19] MEDS: hydrOXYzine pamoate 25 MG CAPSULE PO (21:16)
[2020-01-20] VITALS (10 sets, daily range): BP systolic 107–135; BP diastolic 55–83; PULSE 77–106; RESP 18–20; TEMP 36.1–36.7; O2SAT 97–100
[2020-01-20] MEDS: ACYCLOVIR SODIUM IVPB 1,000 MG in DEXTROSE 5% IN WATER 250 ML 200 MG IVPB (01:52)
[2020-01-20 05:43] LABS: Basophils Percent Auto 0.4 % (0.2-1.2); Eosinophils Absolute Auto 0.1 K/mm3 (0-0.3); Hemoglobin 11.4 g/dL (12.0-15.0); Immature Granulocyte Absolute 0.05 K/mm3 (0.00-0.031); Immature Granulocyte Percent A 0.5 % (0-0.5); Lymphocytes Absolute Auto 2.43 K/mm3 (0.9-3.2); Lymphocytes Percent Auto 24.6 % (18.3-44.2); Mean Corpuscular HGB Conc 34.5 g/dl (32-36); Mean Corpuscular Hemoglobin 29.8 pg (26-34); Mean Corpuscular Volume 86.4 fl (80-100); Mean Platelet Volume 9.4 fl (7.4-10.4); Monocytes Absolute Auto 0.9 K/mm3 (0.1-0.6); Monocytes Percent Auto 8.6 % (2.6-8.5); Neutrophils Absolute Auto 6.4 K/mm3 (1.3-6.7); Neutrophils Percent Auto 64.9 % (45.5-73.1); Platelet Count Result 325 k/mm3 (150-375); Red Blood Count 3.82 M/mm3 (4.2-5.4); White Blood Count 9.9 K/mm3 (4.5-10.0)
[2020-01-20 06:11] LABS: Alanine Aminotransferase 17 U/L (4-35); Albumin Level 3.8 g/dL (3.5-5.1); Alkaline Phosphatase 67 U/L (38-126); Anion Gap 9 mmol/L (8-16); Aspartate Amino Transferase 21 U/L (14-36); Bilirubin,Total 0.3 mg/dL (0.2-1.3); Blood Urea Nitrogen 17 mg/dL (7-17); Calcium 9.1 mg/dL (8.4-10.2); Carbon Dioxide 22 mmol/L (22-30); Chloride 107 mmol/L (98-107); Estimated CRCL calculation 47 ml/min; Estimated Glomerular Filt Rate 29; Glucose 105 mg/dL (65-105); Potassium 3.6 mmol/L (3.4-5.0); Sodium 138 mmol/L (137-145)
[2020-01-20 06:17] LABS: Herpes Simplex Type 1 DNA PCR Not Detected (Not Detected); Herpes Simplex Type 2 DNA PCR Not Detected (Not Detected)
--- NOTE | 2020-01-20 07:52 | PC.NURSE ---
Discussed nonformulary home medications with Dr. Mcgowan. Fenofibrate okay to substitute to dose we carry here (48mg). Roslyn requested I speak with pharmacy regarding substitution for Vraylar. Spoke with Patricia in pharmacy who states there is not a substitution for this medication.
[2020-01-20] MEDS: SODIUM CHLORIDE 0.9% IV 1,000 ML 125 ML IV CONT ×2 (08:06→17:07)
[2020-01-20] MEDS: LORATADINE 10 MG TABLET PO (08:07)
[2020-01-20] MEDS: TOPIRAMATE 100 MG TABLET PO ×2 (08:07→20:23)
[2020-01-20] MEDS: PANTOPRAZOLE 40 MG TABLET PO ×2 (08:07→20:22)
[2020-01-20] MEDS: DULoxetine HCL 60 MG CAPSULE.DR PO (08:07)
[2020-01-20] MEDS: LACOSAMIDE (*CRX) 100 MG TABLET PO ×2 (08:07→20:22)
[2020-01-20] MEDS: FERROUS SULFATE 324 MG TABLET PO (08:07)
[2020-01-20 08:50] LABS: Anion Gap 10 mmol/L (8-16); Blood Urea Nitrogen 18 mg/dL (7-17); Calcium 9.1 mg/dL (8.4-10.2); Carbon Dioxide 19 mmol/L (22-30); Chloride 108 mmol/L (98-107); Estimated CRCL calculation 44 ml/min; Estimated Glomerular Filt Rate 27; Glucose 104 mg/dL (65-105); Potassium 3.9 mmol/L (3.4-5.0); Sodium 137 mmol/L (137-145)
[2020-01-20] MEDS: FENOFIBRATE,MICRONIZED 48 MG TABLET PO (08:51)
[2020-01-20] MEDS: DOCUSATE SODIUM 100 MG CAPSULE PO (08:51)
[2020-01-20] MEDS: hydrOXYzine pamoate 25 MG CAPSULE PO (08:51)
[2020-01-20] MEDS: ONDANSETRON INJ 4 MG/2 ML VIAL IV PUSH (09:43)
[2020-01-20] MEDS: ACYCLOVIR SODIUM IVPB 1,000 MG in DEXTROSE 5% IN WATER 250 ML 175 MG IVPB (09:45)
--- NOTE | 2020-01-20 10:15 | PM.IMPN ---
Progress Note: A&P Assessment and Plan (1) Headache: Qualifiers: Headache chronicity pattern: unspecified pattern Headache type: unspecified Intractability: not intractable Qualified Code(s): R51.9 - Headache, unspecified Code(s): R51.9 - Headache, unspecified Status: Acute Assessment and Plan: 01/20/20 10:15 Patient 29 year female with history of traumatic brain injury with history of seizure on anticonvulsants patient also has history psychiatric illness, alcohol and prescription drug abuse, she has been drug and alcohol free since February of 2018 had been living the care home and recently was asked to leave the home because she had violated curfew order and has been staying in the motel with friends. while in the hotel she became confused had c/o of severe frontal and orbital KIRK, photophobia CT scan of the head is normal, urine drug is negative for any illicit drugs, ER suspected possible meningitis and patient had LP and suspect patient may have viral meningitis patient was started on acyclovir, and viral culture is sent which is negative for herpes. Patient was seen by Neurologist and agrees with the plan so far and to further evaluate patient had EEG is normal , patient's complaints headache which chronic for which patient normally takes vistaril, today patient creatinie has jumped to 2 from 0.9 upon arrival most likely due to dehydration will hydrate patient and monitor if trends down close to normal by tomorrow if not will do kidney US and further recommendation to follow, patient urine culture is growing group B strep started the patient on Rocephin will continue. Patient appears clinically stable and will be seen by neurologist and further recommendation to follow. (2) Abnormal finding in CSF: Code(s): R83.9 - Unspecified abnormal finding in cerebrospinal fluid Status: Acute Assessment and Plan: Suspect viral meningitis patient acyclovir will follow-up on viral culture (3) Seizure: Code(s): R56.9 - Unspecified convulsions Status: Acute Assessment and Plan: Patient on anticonvulsants (4) Suspected sleep apnea: Code(s): R29.818 - Other symptoms and signs involving the nervous system Status: Acute Assessment and Plan: Patient will will benefit from sleep study (5) Psychiatric illness: Code(s): F99 - Mental disorder, not otherwise specified Status: Acute Assessment and Plan: Will continue home regimen (6) Nicotine dependence: Code(s): F17.200 - Nicotine dependence, unspecified, uncomplicated Status: Acute Assessment and Plan: Nicotine patches (7) Confusion: Code(s): R41.0 - Disorientation, unspecified Status: Acute Assessment and Plan: Etiology uncertain will follow on EEG and viral culture further recommendation to follow Subjective Date/time seen: 01/20/20 10:15 Patient 29 year female with history of traumatic brain injury with history of seizure on anticonvulsants patient also has history psychiatric illness, alcohol and prescription drug abuse, she has been drug and alcohol free since February of 2018 had been living the care home and recently was asked to leave the home because she had violated curfew order and has been staying in the motel with friends. while in the hotel she became confused had c/o of severe frontal and orbital KIRK, photophobia CT scan of the head is normal, urine drug is negative for any illicit drugs, ER suspected possible meningitis and patient had LP and suspect patient may have viral meningitis patient was started on acyclovir, and viral culture is sent which is negative for herpes. Patient was seen by Neurologist and agrees with the plan so far and to further evaluate patient had EEG is normal , patient's complaints headache which chronic for which patient normally takes vistaril, today patient creatinie has jumped to 2 from 0.9 upon arrival most likely due to deh
--- NOTE | 2020-01-20 12:33 | PC.NURSE ---
Addendum entered by Stefanie Marcus RN 01/20/20 12:49: Spoke again with Dr. Frost in regards to acyclovir. CSF culture negative. Received orders to d/c acyclovir po and IV Original Note: Spoke with Dr. Frost in regards to patients IVPB acyclovir. Per Dr. Frost, switch IVPB acyclovir to PO for 5 more days. Patient may discharge from his standpoint, no follow up needed.
--- NOTE | 2020-01-20 12:34 | WPDNEUROPN ---
Progress Note: A&P Assessment and Plan (1) Confusion: Code(s): R41.0 - Disorientation, unspecified Status: Acute (2) Seizure: Code(s): R56.9 - Unspecified convulsions Status: Acute (3) Abnormal finding in CSF: Code(s): R83.9 - Unspecified abnormal finding in cerebrospinal fluid Status: Acute Additional Plan Stable to go home with acyclovir p.o. and anticonvulsant as such Review of Systems Review of Systems: All systems reviewed & are unremarkable except as noted in HPI and below Exam Narrative: Exam Narrative: Examination reveals her to be awake alert cooperative his speech nor dysphasic no dysarthric not dysphonic. Ear nose throat examination normal. Neck is supple. Lungs clear. Heart regular with no murmur. Neck abdomen is soft with no organomegaly. Neurological examination nonfocal. Objective Data Vital Signs Vital Signs: Vital Signs - 24 hr 01/19/20 14:20 01/19/20 16:00 01/19/20 18:01 Temperature 36.4 C 36.4 C Pulse Rate 120 H 99 98 Respiratory Rate 18 18 Blood Pressure 133/82 122/61 Pulse Oximetry 99 99 01/19/20 20:00 01/19/20 21:04 01/20/20 00:00 Temperature 36.4 C Pulse Rate 101 H 101 H 82 Respiratory Rate 16 16 Blood Pressure 122/77 Pulse Oximetry 98 98 01/20/20 01:18 01/20/20 04:00 01/20/20 04:12 Temperature 36.6 C 36.6 C Pulse Rate 89 77 84 Respiratory Rate 20 20 Blood Pressure 117/57 L 111/55 L Pulse Oximetry 97 99 01/20/20 08:00 01/20/20 12:00 Temperature 36.1 C L Pulse Rate 106 H 89 Respiratory Rate 18 Blood Pressure 135/83 Pulse Oximetry 99 Intake/Output Intake/Output: Intake & Output 01/17/20 01/18/20 01/19/20 01/20/20 23:59 23:59 23:59 23:59 Intake Total 1270 3670 3040 970 Output Total 6000 1800 900 Balance 1270 -2330 1240 70 Meds/Results Medications: Active Medications Generic Name Dose Route Start Last Admin Trade Name Freq PRN Reason Stop Dose Admin Acetaminophen 650 mg 01/17/20 21:01 01/19/20 21:15 Acetaminophen 325 Mg Tablet PO 650 mg Q6H PRN Administration Mild Pain (1-3) or Fever Acetazolamide 125 mg 01/18/20 09:00 01/20/20 08:07 Acetazolamide Tab 125 Mg Tablet PO 125 mg BID RONNIE Administration Docusate Sodium 100 mg 01/20/20 08:22 01/20/20 08:51 Docusate Sodium 100 Mg Capsule PO 100 mg Q12H PRN Administration Constipation Duloxetine HCl 60 mg 01/18/20 09:00 01/20/20 08:07 Duloxetine Hcl 60 Mg Capsule.Dr PO 60 mg DAILY RONNIE Administration Ergocalciferol 50,000 unit 01/23/20 09:00 Ergocalciferol 50,000 Unit Capsule PO WEEKLY RONNIE Estradiol 0.1 mg 01/18/20 09:00 01/18/20 09:11 Estradiol 7 Day 0.1 Mg Patch TRANSDERM 0.1 mg WEEKLY RONNIE Administration Fenofibrate 48 mg 01/20/20 09:00 01/20/20 08:51 Fenofibrate,Micronized 48 Mg Tablet PO 48 mg QAM RONNIE Administration Ferrous Sulfate 324 mg 01/18/20 09:00 01/20/20 08:07 Ferrous Sulfate 324 Mg Tablet PO 324 mg DAILY RONNIE Administration Hydroxyzine Pamoate 25 mg 01/18/20 13:23 01/20/20 08:51 Hydroxyzine Pamoate 25 Mg Capsule PO 25 mg Q4H PRN Administration Irritation Acyclovir Sodium 1,000 mg/ 270 mls @ 266 mls/hr 01/18/20 02:00 01/20/20 11:18 Dextrose IVPB Infused Q8H RONNIE Infusion Sodium Chloride 1,000 mls @ 125 mls/hr 01/20/20 07:50 01/20/20 09:49 Normal Saline Iv IV CONT 125 mls/hr .Q8H RONNIE Infusion Lacosamide 100 mg 01/17/20 21:10 01/20/20 08:07 Lacosamide (*Crx) 100 Mg Tablet PO 100 mg Q12HR RONNIE Administration Loratadine 10 mg 01/18/20 09:00 01/20/20 08:07 Loratadine 10 Mg Tablet PO 10 mg DAILY RONNIE Administration Nicotine 1 patch 01/17/20 21:05 01/20/20 10:19 Nicotine (*Pbkc) 14 Mg Patch TRANSDERM Not Given QAM RONNIE Non-Formulary Medication 3 mg 01/18/20 09:00 Cariprazine [Vraylar] PO 02/17/20 09:01 DAILY RONNIE Ondansetron HCl 4 mg 01/17/20 21:01
[2020-01-20] MEDS: rOPINIRole HCL 0.5 MG TABLET PO (17:07)
[2020-01-20] MEDS: PRAZOSIN HCL 1 MG CAPSULE 2 MG PO (17:07)
[2020-01-20] MEDS: LIDOCAINE 5% PATCH 2 PATCH TRANSDERM (18:10)
[2020-01-20] MEDS: traZODone HCL 50 MG TABLET 150 MG PO (20:22)
[2020-01-20] MEDS: rOPINIRole HCL 0.25 MG TABLET PO (20:22)
[2020-01-20] MEDS: ACETAMINOPHEN 325 MG TABLET 650 MG PO (20:28)
[2020-01-21] VITALS: BP 118/66; PULSE 94; RESP 18; TEMP 37.1; O2SAT 97
[2020-01-21] MEDS: SODIUM CHLORIDE 0.9% IV 1,000 ML 125 ML IV CONT ×2 (00:05→10:19)
[2020-01-21 02:00] VITALS: BP 119/59; PULSE 75; RESP 18; TEMP 36.4; O2SAT 99
[2020-01-21 04:00] VITALS: BP 132/82; PULSE 100; RESP 18; TEMP 36.4; O2SAT 100
[2020-01-21 05:41] LABS: Basophils Percent Auto 0.4 % (0.2-1.2); Eosinophils Absolute Auto 0.1 K/mm3 (0-0.3); Eosinophils Percent Auto 1.2 % (0-4.4); Hematocrit 31.3 % (37.0-47.0); Hemoglobin 10.4 g/dL (12.0-15.0); Immature Granulocyte Absolute 0.03 K/mm3 (0.00-0.031); Immature Granulocyte Percent A 0.4 % (0-0.5); Lymphocytes Absolute Auto 2.27 K/mm3 (0.9-3.2); Lymphocytes Percent Auto 27.1 % (18.3-44.2); Mean Corpuscular HGB Conc 33.2 g/dl (32-36); Mean Corpuscular Hemoglobin 29.9 pg (26-34); Mean Corpuscular Volume 89.9 fl (80-100); Mean Platelet Volume 9.5 fl (7.4-10.4); Monocytes Absolute Auto 0.7 K/mm3 (0.1-0.6); Monocytes Percent Auto 8.1 % (2.6-8.5); Neutrophils Absolute Auto 5.3 K/mm3 (1.3-6.7); Neutrophils Percent Auto 62.8 % (45.5-73.1); Platelet Count Result 277 k/mm3 (150-375); Red Blood Count 3.48 M/mm3 (4.2-5.4); Red Cell Distribution Width 13.2 % (11.5-14.5); White Blood Count 8.4 K/mm3 (4.5-10.0)
[2020-01-21 05:51] LABS: Alanine Aminotransferase 13 U/L (4-35); Albumin Level 3.5 g/dL (3.5-5.1); Alkaline Phosphatase 63 U/L (38-126); Anion Gap 6 mmol/L (8-16); Aspartate Amino Transferase 19 U/L (14-36); Bilirubin,Total 0.3 mg/dL (0.2-1.3); Blood Urea Nitrogen 16 mg/dL (7-17); Calcium 8.5 mg/dL (8.4-10.2); Carbon Dioxide 20 mmol/L (22-30); Chloride 112 mmol/L (98-107); Estimated CRCL calculation 49 ml/min; Estimated Glomerular Filt Rate 31; Glucose 88 mg/dL (65-105); Potassium 3.7 mmol/L (3.4-5.0); Sodium 138 mmol/L (137-145)
[2020-01-21] MEDS: SODIUM CHLORIDE 0.9% IV 1,000 ML 999 ML IV CONT ×2 (08:48→12:38)
[2020-01-21] MEDS: LACOSAMIDE (*CRX) 100 MG TABLET PO (08:51)
[2020-01-21] MEDS: TOPIRAMATE 100 MG TABLET PO (08:51)
[2020-01-21] MEDS: FENOFIBRATE,MICRONIZED 48 MG TABLET PO (08:51)
[2020-01-21] MEDS: LORATADINE 10 MG TABLET PO (08:51)
[2020-01-21] MEDS: PANTOPRAZOLE 40 MG TABLET PO (08:51)
[2020-01-21] MEDS: DULoxetine HCL 60 MG CAPSULE.DR PO (08:51)
[2020-01-21] MEDS: FERROUS SULFATE 324 MG TABLET PO (08:52)
[2020-01-21] MEDS: LIDOCAINE 5% PATCH 2 PATCH TRANSDERM (08:52)
[2020-01-21] MEDS: hydrOXYzine pamoate 25 MG CAPSULE PO (08:53)
[2020-01-21 10:00] VITALS: BP 133/77; PULSE 75; RESP 18; TEMP 36.8; O2SAT 100
[2020-01-21 10:56] LABS: Anion Gap 6 mmol/L (8-16); Blood Urea Nitrogen 14 mg/dL (7-17); Calcium 8.5 mg/dL (8.4-10.2); Carbon Dioxide 20 mmol/L (22-30); Chloride 114 mmol/L (98-107); Estimated CRCL calculation 55 ml/min; Estimated Glomerular Filt Rate 35; Glucose 106 mg/dL (65-105); Potassium 3.8 mmol/L (3.4-5.0); Sodium 140 mmol/L (137-145)
[2020-01-21] MEDS: ONDANSETRON INJ 4 MG/2 ML VIAL IV PUSH (12:04)
[2020-01-21 15:04] LABS: Anion Gap 5 mmol/L (8-16); Blood Urea Nitrogen 13 mg/dL (7-17); Calcium 8.3 mg/dL (8.4-10.2); Carbon Dioxide 23 mmol/L (22-30); Chloride 113 mmol/L (98-107); Estimated CRCL calculation 58 ml/min; Estimated Glomerular Filt Rate 38; Glucose 88 mg/dL (65-105); Potassium 3.9 mmol/L (3.4-5.0); Sodium 141 mmol/L (137-145)
--- NOTE | 2020-01-21 15:54 | PM.DS ---
DS: Admitting Diagnosis Admitting Diagnosis Admitting Diagnosis: Headache, confusion. DS: Discharge Diagnosis Discharge Diagnosis (1) Headache: Qualifiers: Headache chronicity pattern: unspecified pattern Headache type: unspecified Intractability: not intractable Qualified Code(s): R51.9 - Headache, unspecified Code(s): R51.9 - Headache, unspecified Status: Acute Assessment and Plan: 01/20/20 10:15 Patient 29 year female with history of traumatic brain injury with history of seizure on anticonvulsants patient also has history psychiatric illness, alcohol and prescription drug abuse, she has been drug and alcohol free since February of 2018 had been living the [facility] and recently was asked to leave the home because she had violated curfew order and has been staying in the motel with friends. while in the hotel she became confused had c/o of severe frontal and orbital KIRK, photophobia CT scan of the head is normal, urine drug is negative for any illicit drugs, ER suspected possible meningitis and patient had LP and suspect patient may have viral meningitis patient was started on acyclovir, and viral culture is sent which is negative for herpes. Patient was seen by Neurologist and agrees with the plan so far and to further evaluate patient had EEG is normal , patient's complaints headache which chronic for which patient normally takes vistaril, today patient creatinie has jumped to 2 from 0.9 upon arrival most likely due to dehydration will hydrate patient and monitor if trends down close to normal by tomorrow if not will do kidney US and further recommendation to follow, patient urine culture is growing group B strep started the patient on Rocephin will continue. Patient appears clinically stable and will be seen by neurologist and further recommendation to follow. (2) Abnormal finding in CSF: Code(s): R83.9 - Unspecified abnormal finding in cerebrospinal fluid Status: Acute Assessment and Plan: Suspect viral meningitis patient acyclovir will follow-up on viral culture (3) Seizure: Code(s): R56.9 - Unspecified convulsions Status: Acute Assessment and Plan: Patient on anticonvulsants (4) Suspected sleep apnea: Code(s): R29.818 - Other symptoms and signs involving the nervous system Status: Acute Assessment and Plan: Patient will will benefit from sleep study (5) Psychiatric illness: Code(s): F99 - Mental disorder, not otherwise specified Status: Acute Assessment and Plan: Will continue home regimen (6) Nicotine dependence: Code(s): F17.200 - Nicotine dependence, unspecified, uncomplicated Status: Acute Assessment and Plan: Nicotine patches (7) Confusion: Code(s): R41.0 - Disorientation, unspecified Status: Acute Assessment and Plan: Etiology uncertain will follow on EEG and viral culture further recommendation to follow DS: Summary Hospital Course Reason for hospitalization: Chief complaint: Headache, confusion. Narrative: Sarah Menon is a 29-year-old female with history of traumatic brain injury and subsequent seizures and underlying psychiatric illnesses who presented to the emergency department earlier today via private vehicle with complaints of headache and confusion. She has a history of alcohol and prescription drug abuse and has been clean since February 2018. In fact she has been living at a sober house since 2018 however she was kicked out of that home on Friday night after she missed curfew. She has been staying with friends and last night she stated a local motel and was there were she started to become confused and she apparently called a friend who was concerned about her. That friend came to visit her today and she seemed to be doing better however while they were out shopping she apparently once again became confused, got of the car, and was wandering around. On arrival to
== END 2020-01-21 17:46 | disposition home or self-care (01) | DRG 51 ==
LOC: ANHED 13:18 → ANH2MED 17:16
PROVIDERS: Emergency Medicine; Admitting Provider Family Medicine; Emergency Provider Emergency Medicine; PCP Physician Assistant; Visit Provider Family Medicine
DX: A87.9 Viral meningitis, unspecified (principal); Z87.820 Personal history of traumatic brain injury; F99 Mental disorder, not otherwise specified; F17.200 Nicotine dependence, unspecified, uncomplicated; R56.9 Unspecified convulsions; G47.30 Sleep apnea, unspecified
CPT/HCPCS: 36415; 62270; 70450; 80048; 80053; 80307; 81001; 81025; 82945; 83735; 84157; 85025; 87070; 87529; 89051; 93005; 94762; 95816; 96361; 96365; 96366; 96367; 96375; 96376; 99285; A9270; G0378; G0379; J0133; J0696; J1200; J1885; J2405; J7030; J7060

== ENCOUNTER 2020-07-08 12:07 | Emergency (ER) | payer OTHER, SELFPAY ==
[2020-07-08 12:12] VITALS: BP 120/65; PULSE 86; RESP 20; TEMP 36.6; O2SAT 99
--- NOTE | 2020-07-08 12:24 | ED.LOWEXIN ---
HPI - Extremity Injury (Lower) General Chief Complaint: Unspecified Stated Complaint: feet swelling and pain Time Seen by Provider: 07/08/20 12:24 Source: patient and RN notes reviewed Mode of arrival: ambulatory Limitations: no limitations History of Present Illness HPI Narrative: 30-year-old presents to the [facility] with multiple complaints. States that her feet swelling and turning purple. Also states that she has had a cough with SOB since having covid. Denies fevers. Covid pneumonia June 03 Was seen at [facility] a week ago and started on an unknown antibiotic, thinks it was Cipro however it caused the cough to be worse and cause bad GI issues, states that she stopped taking it. Went to [facility] office yesterday and did a urinalysis, was given a different antibiotic. States that she made appointment for Friday with her primary care due to the foot pain. States the pain is so bad she cannot walk and cannot take the pain anymore that she came in for evaluation. States she has a history of an acute kidney injury. Patient looks extremely uncomfortable. States the Cymbalta is not doing anything for her feet. Related Data Home Medications Medication Instructions Recorded Confirmed Vraylar 3 mg PO DAILY 05/01/19 07/08/20 fenofibrate 54 mg PO DAILY 05/01/19 07/08/20 meloxicam 15 mg PO DAILY 05/01/19 07/08/20 ropinirole 0.25 mg PO HS 05/01/19 07/08/20 trazodone 150 mg PO HS 05/01/19 07/08/20 acetazolamide 250 mg PO BID 01/17/20 07/08/20 duloxetine [Cymbalta] 60 mg PO DAILY 01/17/20 07/08/20 ergocalciferol (vitamin D2) 50,000 unit PO WEEKLY 01/17/20 07/08/20 [Vitamin D2] loratadine 10 mg PO DAILY 01/17/20 07/08/20 omeprazole 40 mg PO DAILY 01/17/20 07/08/20 prazosin 2 mg PO QPM 01/17/20 07/08/20 ropinirole 0.5 mg PO DAILY 01/17/20 07/08/20 Allergies Allergy/AdvReac Type Severity Reaction Status Date / Time carbamazepine [From Tegretol] Allergy Hives Verified 07/08/20 13:59 latex Allergy Anaphylaxis Verified 07/08/20 13:59 morphine Allergy Dyspnea / Verified 07/08/20 13:59 SOB Review of Systems Review of Systems: All systems reviewed & are unremarkable except as noted in HPI and below Constitutional: Constitutional: Reports as per HPI, Denies chills, Reports fatigue and Denies fever(s) Cardiovascular: Cardiovascular: Reports no additional cardiovascular complaints and Denies chest pain Respiratory: Respiratory: Reports as per HPI, Reports chest congestion, Reports cough and Reports dyspnea Gastrointestinal: Gastrointestinal: Reports no additional gastrointestinal complaints, Denies abdominal pain, Denies diarrhea, Denies nausea and Denies vomiting Genitourinary: Genitourinary: Reports no additional female genitourinary complaints Musculoskeletal: Musculoskeletal: Denies back pain, Reports myalgias (Generalized since mid May) and Denies muscle cramps Integumentary/Breasts: Skin/Breast: Reports as per HPI Neurologic: Reports numbness Psychiatric: Psychiatric: Reports as per HPI [facility] Past Medical History Medical History Anxiety and depression Bipolar disorder Borderline personality disorder Nicotine dependence Polysubstance abuse History of alcohol and prescription drug abuse, clean since February 2018. 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 Supraventricular tachycardia Status post cardiac ablation. Traumatic brain injury (~2010) Surgical History Surgical History History of 3 sections History of appendectomy History of bilateral carpal tunnel release History of cardiac radiofrequency ablation For supraventricular tachycardia. History of elbow surgery ORIF left elbow fracture. History of sinus surgery History of tonsillectomy History of total abdominal hysterectomy and bilateral salpingo-oophorectomy For endometriosis. Family History Family History
== END 2020-07-08 12:42 | disposition short-term general hospital (02) ==
PROVIDERS: Emergency Provider Nurse Practitioner; PCP Physician Assistant
DX: R05 Cough (principal); B94.8 Sequelae of other specified infectious and parasitic diseases; F17.210 Nicotine dependence, cigarettes, uncomplicated; F32.9 Major depressive disorder, single episode, unspecified
CPT/HCPCS: 99212; G0463

== ENCOUNTER 2020-07-08 13:24 | Emergency (ER) | payer OTHER, SELFPAY ==
--- NOTE | ~2020-07-08 | XR_ITS ---
EXAMINATION: XR chest 1V portable INDICATION: Shortness of breath TECHNIQUE: Portable AP chest at 1445 hours COMPARISON: None available FINDINGS: There are patchy bilateral airspace opacities. There is no pleural effusion or pneumothorax . The heart size is normal. The visualized osseous structures are unremarkable. A cardiac monitoring device projects over the left chest wall. IMPRESSION: 1. Patchy bilateral airspace opacities, consistent with atelectasis versus pneumonia. Reviewed, dictated and finalized at location A. IMPRESSION: 1. Patchy bilateral airspace opacities, consistent with atelectasis versus pneu monia.
[2020-07-08 13:54] VITALS: BP 114/74; PULSE 83; RESP 22; TEMP 36.7; O2SAT 97
--- NOTE | 2020-07-08 14:17 | ECG_ITS ---
Measurements Intervals [place] Rate: 73 P: 20 PA: 167 QRS: -7 QRSD: 94 T: 55 QT: 393 QTc: 434 Interpretive Statements SINUS RHYTHM LOW QRS VOLTAGE IN PRECORDIAL LEADS BASELINE ARTIFACT- I, II, III, AVR, AVF, V1-V6 BORDERLINE ECG Electronically Signed On 07-08-2020 17:50:00 CDT by Robert Pérez D.O.
--- NOTE | 2020-07-08 14:23 | PC.NURSE ---
Dr. Macdonald at bedside for assessment
--- NOTE | 2020-07-08 14:53 | ED.GENADULT ---
HPI - General Adult General Chief complaint: Shortness of Breath/Dyspnea Stated complaint: feet pain, r/o PE Time Seen by Provider: 07/08/20 13:36 Source: patient and RN notes reviewed Mode of arrival: ambulatory Limitations: no limitations History of Present Illness HPI narrative: Patient is 30 years old white female presents with feet pain for the last 2 weeks, been feeling weird since she been diagnosed of Covid infection June 03, 2020. Patient is telling me that she been feeling weird, cough, shortness of breath, dry mouth, poor p.o. intake, teeth pain, feeling not herself, patient received mild during the vaccine on June 18 of this month. Patient denies any fever, chills, vomiting, chest pain or back pain. History of intracranial hypertension, seizure, hyperlipidemia, multiple personality disorder, depression, PTSD, anxiety Related Data Home Medications Medication Instructions Recorded Confirmed Vraylar 3 mg PO DAILY 05/01/19 07/08/20 fenofibrate 54 mg PO DAILY 05/01/19 07/08/20 meloxicam 15 mg PO DAILY 05/01/19 07/08/20 ropinirole 0.25 mg PO HS 05/01/19 07/08/20 trazodone 150 mg PO HS 05/01/19 07/08/20 acetazolamide 250 mg PO BID 01/17/20 07/08/20 duloxetine [Cymbalta] 60 mg PO DAILY 01/17/20 07/08/20 ergocalciferol (vitamin D2) 50,000 unit PO WEEKLY 01/17/20 07/08/20 [Vitamin D2] loratadine 10 mg PO DAILY 01/17/20 07/08/20 omeprazole 40 mg PO DAILY 01/17/20 07/08/20 prazosin 2 mg PO QPM 01/17/20 07/08/20 ropinirole 0.5 mg PO DAILY 01/17/20 07/08/20 Allergies Allergy/AdvReac Type Severity Reaction Status Date / Time carbamazepine [From Tegretol] Allergy Hives Verified 07/08/20 13:59 latex Allergy Anaphylaxis Verified 07/08/20 13:59 morphine Allergy Dyspnea / Verified 07/08/20 13:59 SOB Review of Systems Review of Systems: Narrative: CONSTITUTIONAL: Denies fever, chills, or sweats. EYES: Denies visual changes, redness, or discharge. ENT: Denies rhinorrhea, congestion, sore throat, or otalgia. CARDIOVASCULAR: Denies chest pain, palpitations, or edema. RESPIRATORY: Denies cough or dyspnea. GASTROINTESTINAL: Denies abdominal pain, nausea, vomiting, or diarrhea. GENITOURINARY: Denies dysuria or hematuria. SKIN: Denies rash or itching. MUSCULOSKELETAL: Denies back pain, joint pain, or myalgia. NEUROLOGIC: Denies headache, numbness, or weakness. PSYCHIATRIC: Denies anxiety or depression. [facility] Past Medical History Medical History Anxiety and depression Bipolar disorder Borderline personality disorder Nicotine dependence Polysubstance abuse History of alcohol and prescription drug abuse, clean since February 2018. 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 Supraventricular tachycardia Status post cardiac ablation. Traumatic brain injury (~2010) Surgical History Surgical History History of 3 sections History of appendectomy History of bilateral carpal tunnel release History of cardiac radiofrequency ablation For supraventricular tachycardia. History of elbow surgery ORIF left elbow fracture. History of sinus surgery History of tonsillectomy History of total abdominal hysterectomy and bilateral salpingo-oophorectomy For endometriosis. Family History Family History Other Depression Diabetes mellitus Heart disease Hypertension Social History Social History Social History: Surrogate decision maker: Rolando Menon, father. Code status: Full code. Smoking status: Current every day smoker Tobacco type: e-cigarettes/vaping Additional smoking assessment comments: She smoked 1 to 2 cigarettes a day and vapes as well. Alcohol intake: former Substance use: former Other substance usage details: History prescription drug abuse, clean since Feb
[2020-07-08 15:28] LABS: Basophils Absolute Auto 0.1 K/mm3 (0.0-0.1); Basophils Percent Auto 0.8 % (0.2-1.2); Eosinophils Absolute Auto 0.4 K/mm3 (0-0.3); Eosinophils Percent Auto 6.2 % (0-4.4); Hematocrit 31.9 % (37.0-47.0); Hemoglobin 10.7 g/dL (12.0-15.0); Immature Granulocyte Absolute 0.01 K/mm3 (0.00-0.031); Immature Granulocyte Percent A 0.2 % (0-0.5); Lymphocytes Absolute Auto 2.91 K/mm3 (0.9-3.2); Mean Corpuscular HGB Conc 33.5 g/dl (32-36); Mean Corpuscular Hemoglobin 29.9 pg (26-34); Mean Corpuscular Volume 89.1 fl (80-100); Mean Platelet Volume 9.9 fl (7.4-10.4); Monocytes Absolute Auto 0.5 K/mm3 (0.1-0.6); Monocytes Percent Auto 8.2 % (2.6-8.5); Neutrophils Absolute Auto 2.1 K/mm3 (1.3-6.7); Neutrophils Percent Auto 35.6 % (45.5-73.1); Platelet Count Result 275 k/mm3 (150-375); Red Blood Count 3.58 M/mm3 (4.2-5.4); Red Cell Distribution Width 12.7 % (11.5-14.5); White Blood Count 5.9 K/mm3 (4.5-10.0)
--- NOTE | 2020-07-08 15:35 | PC.NURSE ---
First lab draw attempt hemolyzed, attempting US access. Pt states oh yea I am also an IV drug user
[2020-07-08 15:43] VITALS: BP 125/71; PULSE 80; RESP 22; TEMP 36.7; O2SAT 98
[2020-07-08 16:15] LABS: INR 0.9; Prothrombin Time 13.1 Seconds (11.1-14.7)
[2020-07-08 16:16] LABS: Partial Thromboplastin Time 29.4 SECONDS (22.3-36.8)
[2020-07-08 16:18] LABS: D Dimer 0.33 ug/mL (<0.48)
[2020-07-08 16:32] LABS: Alanine Aminotransferase 22 U/L (4-35); Albumin Level 4.1 g/dL (3.5-5.1); Alkaline Phosphatase 56 U/L (38-126); Anion Gap 6 mmol/L (8-16); Aspartate Amino Transferase 25 U/L (14-36); Bilirubin,Total 0.2 mg/dL (0.2-1.3); Blood Urea Nitrogen 19 mg/dL (7-17); Carbon Dioxide 23 mmol/L (22-30); Chloride 110 mmol/L (98-107); Estimated Glomerular Filt Rate 58; Glucose 108 mg/dL (65-105); Potassium 3.5 mmol/L (3.4-5.0); Sodium 139 mmol/L (137-145)
[2020-07-08 16:44] LABS: NT Pro B Type Natriuretic Pept 42 pg/mL (5-100); Troponin I < 0.012 ng/mL (0.000-0.034)
--- NOTE | 2020-07-08 18:20 | PC.NURSE ---
Dr Macdonald at bedside for d/c. Pt had been asleep easily arousable, non-labored resps on RA, 100% O2 sats. NSR on monitor, rate in 70's.
[2020-07-08 18:35] VITALS: BP 116/55; PULSE 93; RESP 12; O2SAT 100
== END 2020-07-08 18:39 | disposition home or self-care (01) ==
PROVIDERS: Emergency Provider Emergency Medicine; PCP Physician Assistant
DX: J18.9 Pneumonia, unspecified organism (principal); B94.8 Sequelae of other specified infectious and parasitic diseases; F41.9 Anxiety disorder, unspecified; F31.9 Bipolar disorder, unspecified; F60.3 Borderline personality disorder; F43.10 Post-traumatic stress disorder, unspecified; Z87.820 Personal history of traumatic brain injury; F17.210 Nicotine dependence, cigarettes, uncomplicated; F17.290 Nicotine dependence, other tobacco product, uncomplicated; R94.31 Abnormal electrocardiogram [ECG] [EKG]
CPT/HCPCS: 36415; 71045; 80053; 83880; 84484; 85025; 85380; 85610; 85730; 93005; 99284